=== PATIENT | male | born 1965 | race African-American/Black ===

== ENCOUNTER 2017-10-14 22:45 | Emergency (ER) | payer MEDICAID ==
[~2017-10-14] VITALS: Ht 170.2 cm; Wt 102.5 kg
[2017-10-14] MEDS ORDERED: SODIUM CHLORIDE 0.9% 1,000 ML IV ONE (23:00)
[2017-10-14] MEDS: InsuLIN REG 1unit/0.01ml Soln (100units/ml) IV ONE (23:15)
[2017-10-14 23:35] LABS: Basophils # (auto) 0.2 uL; Basophils % (auto) 1.9 % (0.0-2.0); Eosinophils # (auto) 0.3 uL; Eosinophils % (auto) 3.5 % (0.0-7.0); Hematocrit 41.3 % (41.0-53.0); Hemoglobin 13.6 g/dL (13.5-17.5); Lymphocytes # (auto) 2.6 uL; Lymphocytes % (auto) 30.9 % (10.0-50.0); Mean Corpuscular Hemoglobin 27.4 pg (28.0-32.0); Monocytes # (auto) 0.6 uL; Monocytes % (auto) 6.5 % (0.0-12.0); Neutrophils # (auto) 4.9 uL; Neutrophils % (auto) 57.2 % (37.0-80.0); Nucleated Red Blood Cells % 0.1 %; Platelet Count (auto) 287 10^3/uL (140-450); Red Blood Cells 4.98 10^6/uL (4.5-5.90); Red Cell Distribution Width 14.7 % (11.8-14.3); White Blood Cell 8.6 10^3/uL (4.4-10.8)
[2017-10-14 23:50] LABS: Alanine Aminotransferase 17 U/L (16-61); Albumin 3.8 g/dL (3.4-5.0); Alkaline Phosphatase 136 U/L (45-117); Anion Gap 13 (5-15); Aspartate Aminotransferase 9 U/L (15-37); BUN/Creatinine Ratio 11.8; Bilirubin, Total 0.4 mg/dL (0.2-1.0); Blood Urea Nitrogen 18 mg/dL (7-18); Calcium 8.7 mg/dL (8.5-10.1); Carbon Dioxide 23 mmol/L (21-32); Chloride 99 mmol/L (98-107); GFR African American 62 mL/min; GFR Non-African American 51 mL/min; Sodium 135 mmol/L (136-145); Total Protein 8.1 g/dL (6.4-8.2)
[2017-10-14 23:54] LABS: Glucose 439 mg/dL (74-106)
[2017-10-15] MEDS: InsuLIN REG 1unit/0.01ml Soln (100units/ml) IV ONE (00:02)
[2017-10-15 00:21] LABS: Urine Bacteria NONE SEEN /hpf (None Seen); Urine Blood TRACE /uL (Negative); Urine WBC <1 /hpf (0 - 3)
[2017-10-15 01:35] VITALS: BP 118/92
[2017-10-16] MEDS ORDERED: INSLANTI SC ×2 (13:08→13:13)
[2017-10-16] MEDS ORDERED: ATOR20TA50 PO (13:08)
[2017-10-16] MEDS ORDERED: CIPR-217 PO (13:08)
[2017-10-16] MEDS ORDERED: BLOO1KIT60 XX (13:13)
[2017-10-16] MEDS ORDERED: INSU100I4 SC (13:13)
[2017-10-16] MEDS ORDERED: [UNRECOGNIZED DRUG - CODE] XX (13:13)
== END 2017-10-15 02:23 | disposition home or self-care (01) ==
LOC: ER 22:50
DX: E11.65 Type 2 diabetes mellitus with hyperglycemia (principal); R51 Headache; J44.9 Chronic obstructive pulmonary disease, unspecified; E78.5 Hyperlipidemia, unspecified; Z79.4 Long term (current) use of insulin
CPT/HCPCS: 36415; 70450; 80053; 81001; 82010; 82962; 83036; 84484; 85025; 96361; 96374; 99285; J1815

== ENCOUNTER 2017-10-15 22:36 | Inpatient (IN) | payer MEDICAID ==
[~2017-10-15] VITALS: Ht 170.2 cm; Wt 99.8 kg
[2017-10-16 00:40] LABS: Basophils # (auto) 0.1 uL; Eosinophils # (auto) 0.3 uL; Eosinophils % (auto) 4.3 % (0.0-7.0); Hematocrit 39.6 % (41.0-53.0); Hemoglobin 13.2 g/dL (13.5-17.5); Lymphocytes % (auto) 41.6 % (10.0-50.0); Mean Corpuscular Hemoglobin 27.7 pg (28.0-32.0); Mean Corpuscular Hgb Conc. 33.3 g/dL (32.0-36.0); Mean Corpuscular Volume 83.2 fL (80.0-100.0); Monocytes # (auto) 0.4 uL; Monocytes % (auto) 6.1 % (0.0-12.0); Neutrophils # (auto) 3.4 uL; Platelet Count (auto) 264 10^3/uL (140-450); Red Blood Cells 4.76 10^6/uL (4.5-5.90); Red Cell Distribution Width 14.4 % (11.8-14.3); White Blood Cell 7.2 10^3/uL (4.4-10.8)
[2017-10-16 00:57] LABS: Albumin 3.7 g/dL (3.4-5.0); Potassium 4.2 mmol/L (3.5-5.1)
[2017-10-16 01:02] LABS: BUN/Creatinine Ratio 14.2; Bilirubin, Total 0.5 mg/dL (0.2-1.0); Total Protein 7.6 g/dL (6.4-8.2)
[2017-10-16] MEDS ORDERED: SODIUM CHLORIDE 0.9% 1,000 ML IV ONE (02:15)
[2017-10-16] MEDS ORDERED: InsuLIN REG 1unit/0.01ml Soln (100units/ml) IV ONE (02:15)
[2017-10-16] MEDS ORDERED: HYDROcodone-ACET 10/325MG TAB PO ONE (03:00)
[2017-10-16] MEDS ORDERED: HYDROcodone-ACET 5/325MG TAB PO PRN (06:00)
[2017-10-16] MEDS ORDERED: TEMAZEPAM 15 MG CAP PO PRN (06:00)
[2017-10-16] MEDS ORDERED: ACETAMINOPHEN 325 MG TAB PO PRN (06:00)
[2017-10-16] MEDS ORDERED: DEXTROSE (50%) 50ML SYRG IV PRN (06:00)
[2017-10-16] MEDS ORDERED: ONDANSETRON HCL 4 MG/2 ML VIAL IV PRN (06:00)
[2017-10-16] MEDS: GABAPENTIN 300 MG CAP PO SCH ×2 (06:30→12:04)
[2017-10-16 07:29] LABS: Urine Bacteria NONE SEEN /hpf (None Seen); Urine Blood TRACE /uL (Negative); Urine Specific Gravity 1.031 (1.001-1.035); Urine WBC 2 /hpf (0 - 3)
[2017-10-16] MEDS: ACCU-CHEK COMFORT CURVE STRIP VI SCH ×3 (08:00→16:42)
[2017-10-16] MEDS: InsuLIN REG 1unit/0.01ml Soln (100units/ml) SC SCH ×3 (08:00→16:42)
[2017-10-16] MEDS ORDERED: FAMOTIDINE 20 MG TAB PO SCH (10:00)
[2017-10-16] MEDS: ENOXAPARIN SOD 40 MG/0.4 ML SYRINGE SC SCH ×2 (10:00→10:53)
[2017-10-16] MEDS ORDERED: amLODIPine BESYLATE 5 MG TAB PO SCH (10:00)
[2017-10-16] MEDS ORDERED: ENOXAPARIN SOD 30 MG/0.3 ML SYRINGE SC SCH (10:00)
[2017-10-16] MEDS ORDERED: INSLANTI SC ×2 (13:08→13:13)
[2017-10-16] MEDS ORDERED: ATOR20TA50 PO (13:08)
[2017-10-16] MEDS ORDERED: CIPR-217 PO (13:08)
[2017-10-16] MEDS ORDERED: INSU100I4 SC (13:13)
[2017-10-16] MEDS ORDERED: BLOO1KIT60 XX (13:13)
[2017-10-16] MEDS ORDERED: [UNRECOGNIZED DRUG - CODE] XX (13:13)
[2017-10-16] MEDS ORDERED: CIPROFLOXACIN HCL 500 MG TAB PO ONE (13:15)
[2017-10-16 14:16] VITALS: BP 125/82
[2017-10-16 16:00] VITALS: BP 110/72
[2017-10-16] MEDS ORDERED: ATORVASTATIN 20 MG TAB PO SCH (22:00)
== END 2017-10-16 17:00 | disposition home health service (06) | DRG 420 ==
LOC: ER 22:46 → OVERFLOW 22:47 → WEST WING 10-16 08:05
PROVIDERS: ADMIT Nurse Practitioner; ATTEND Internal Medicine
DX: E11.65 Type 2 diabetes mellitus with hyperglycemia (principal); N18.3 Chronic kidney disease, stage 3 (moderate); J44.1 Chronic obstructive pulmonary disease with (acute) exacerbation; E87.1 Hypo-osmolality and hyponatremia; E78.5 Hyperlipidemia, unspecified; N39.0 Urinary tract infection, site not specified; I12.9 Hypertensive chronic kidney disease with stage 1 through stage 4 chronic kidney disease, or unspecified chronic kidney disease; E86.0 Dehydration; Z71.89 Other specified counseling; Z79.4 Long term (current) use of insulin
CPT/HCPCS: 36415; 71045; 80053; 81001; 82962; 83036; 85025; 94761; 96374; G0378; J1815

== ENCOUNTER 2018-05-02 11:08 | Emergency (ER) | payer MEDICAID ==
[~2018-05-02] VITALS: Ht 170.2 cm; Wt 98.0 kg
[~2018-05-02 11:08] MED LIST: ATOR20TA50 PO; BLOO1KIT60 XX; CIPR-217 PO; INSLANTI SC; INSU100I4 SC; [UNRECOGNIZED DRUG - CODE] XX
[2018-05-02 12:22] VITALS: BP 127/77
[2018-05-02] MEDS ORDERED: KETOROLAC TROMETH 60MG/2ML VIAL IM ONE (12:45)
[2018-05-02] MEDS ORDERED: HYDROcodone-ACET 10/325MG TAB PO ONE (12:45)
== END 2018-05-02 14:21 | disposition home or self-care (01) ==
LOC: ER 11:09
DX: M25.511 Pain in right shoulder (principal); G89.29 Other chronic pain; M19.90 Unspecified osteoarthritis, unspecified site; J44.9 Chronic obstructive pulmonary disease, unspecified; E11.9 Type 2 diabetes mellitus without complications; E78.5 Hyperlipidemia, unspecified; Z96.652 Presence of left artificial knee joint
CPT/HCPCS: 73200; 96372; 99284; J1885